=== PATIENT | male | born 1960 | race Caucasian/White ===

== ENCOUNTER 2017-01-28 10:06 | Emergency (ER) | payer OTHER ==
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
[2017-01-28 11:30] LABS: % EOSINOPHILS 0.5 % (0.0-5.0); % LYMPHOCYTES 14.6 % (20.0-50.0); % MONOCYTES 4.6 % (2.0-10.0); % NEUTROPHILS 80.3 % (40.0-80.0); HEMATOCRIT 53.6 % (39.0-49.0); HEMOGLOBIN 17.7 gm/dL (13.2-17.3); MEAN CELL VOLUME 92.5 fl (80-99); MEAN CORPUSCULAR HEMOGLOBIN 30.6 pg (26.0-30.0); MEAN CORPUSCULAR HGB CONC 33.1 pg (28.0-36.0); NEUTROPHILE ABSOLUTE 11.7 Th/cmm (1.8-8.0); PLATELET COUNT 228 Th/cmm (150-400); RED BLOOD COUNT 5.79 Mil/cmm (4.30-5.70); RED CELL DISTRIBUTION WIDTH 13.4 % (11.5-20.0)
[2017-01-28 11:37] LABS: WHITE BLOOD COUNT 14.6 Th/cmm (4.8-10.8)
[2017-01-28 11:42] LABS: PROTHROMBIN TIME (TEST) 10.4 SECONDS (9.5-11.5)
[2017-01-28 11:45] LABS: ALB/GLOB RATIO 1.1 (1.0-1.8); ALKALINE PHOSPHATASE 73 U/L (34-104); ANION GAP 12.3 (7.0-16.0); BILIRUBIN,TOTAL 0.9 mg/dL (0.3-1.0); BUN - UREA NITROGEN 23 mg/dL (7-25); BUN/CREATININE RATIO 32.9; CALCIUM SERUM 8.8 mg/dL (8.6-10.3); CARBON DIOXIDE 24.1 mEq/L (21.0-31.0); CHLORIDE 107 mEq/L (98-107); CREATININE - SERUM 0.7 mg/dL (0.7-1.3); GLUCOSE 126 mg/dL (70-105); POTASSIUM SERUM 4.4 mEq/L (3.5-5.1); SGOT 41 U/L (13-39); SGPT/ALT 73 U/L (7-52); SODIUM SERUM 139 mEq/L (136-145)
--- NOTE | 2017-01-28 13:01 | Diagnostic Imaging Report ---
CT lumbar spine without IV contrast HISTORY: Left sciatic pain. Rule out nerve root impingement COMPARISON: None Technique: Axial images were obtained from the lower thoracic spine to the upper sacrum without IV contrast. Reconstructions were made. 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 There is a partial lumbarization of S1. No evidence of an acute fracture or subluxation. Moderate to advanced degenerative changes are seen greatest in the lower lumbar spine with advanced facet degenerative changes seen at L5/S1 and 2 mm anterolisthesis at this level. There is also 3-4 broad-based posterior disc bulge is seen at L5/S1 causing mild spinal canal narrowing and severe left and mild right neural foraminal narrowing at this level. The regional retroperitoneum is grossly unremarkable. 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 No evidence of an acute fracture. Moderate to advanced degenerative changes greatest at L5/S1 with 3-4 minimal broad-based disc bulge at this level causing moderate spinal canal narrowing and severe left and mild right neural foraminal narrowing. There is also 2 mm anterolisthesis at this level likely due to severe facet arthropathy at this level. Consider further assessment with short-term follow-up MRI given patient's symptoms.
[2017-01-28 13:37] LABS: URINE COLOR YELLOW
[2017-01-28 13:38] LABS: URINE BILIRUBIN SMALL (NEGATIVE); URINE BLOOD NEGATIVE (NEGATIVE); URINE GLUCOSE (UA) NEGATIVE (NEGATIVE); URINE KETONE TRACE mg/dL (NEGATIVE); URINE PROTEIN TRACE mg/dL (NEGATIVE)
[2017-01-28 13:40] LABS: URINE BACTERIA NONE SEEN /hpf (NONE SEEN); URINE EPITHELIAL CELLS RARE /lpf (FEW); URINE RBC 0-1 /hpf (0-5); URINE WBC NONE SEEN /hpf (0-5)
== END 2017-01-28 13:32 | disposition home or self-care (01) ==
LOC: ER 10:06
DX: M54.42 Lumbago with sciatica, left side (principal); I10 Essential (primary) hypertension
CPT/HCPCS: 36415-UA; 72131-TC; 80053-TC; 81001-TC; 83605; 85025-TC; 85610-TC; Z7502

== ENCOUNTER 2019-03-12 13:27 | Emergency (ER) | payer OTHER ==
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
--- NOTE | 2019-03-13 09:44 | Diagnostic Imaging Report ---
Exam: Mandible HISTORY: Trauma Findings: Multiple views of the abdomen and demonstrate no evidence of fracture dislocation. The visualized temporomandibular joints are intact IMPRESSION: normal exam of the mandible, if clinically indicated CT examination might be helpful.
== END 2019-03-12 14:27 | disposition home or self-care (01) ==
LOC: ER 13:27
DX: S00.83XA Contusion of other part of head, initial encounter (principal); I10 Essential (primary) hypertension; W21.03XA Struck by baseball, initial encounter; Y93.89 Activity, other specified; Y92.89 Other specified places as the place of occurrence of the external cause; Y99.8 Other external cause status
CPT/HCPCS: 70100-TC-LT; Z7502